=== PATIENT | male | born 1990 | race Caucasian/White ===

== ENCOUNTER 2022-07-19 20:04 | Emergency (ER) | payer OTHER ==
[2022-07-19] MEDS ORDERED: CEPHALEXIN500 M1 PO (21:22)
[2022-07-19] MEDS ORDERED: SEPTDS PO (21:22)
== END 2022-07-19 23:01 | disposition home or self-care (01) ==
LOC: ED 20:04
DX: S80.862A Insect bite (nonvenomous), left lower leg, initial encounter (principal); Z48.00 Encounter for change or removal of nonsurgical wound dressing; W57.XXXA Bitten or stung by nonvenomous insect and other nonvenomous arthropods, initial encounter; Y93.89 Activity, other specified; Y92.89 Other specified places as the place of occurrence of the external cause; Y99.8 Other external cause status

== ENCOUNTER → 2025-09-04 | Outpatient (CLI) | payer OTHER ==
[~2025-09-04] MED LIST: CEPHALEXIN500 M1 PO; SEPTDS PO
== END | disposition home or self-care (01) ==
LOC: LAB 09:13
PROVIDERS: ATTEND Family Medicine
DX: R79.89 Other specified abnormal findings of blood chemistry (principal); R53.83 Other fatigue